=== PATIENT | male | born 1960 | race African-American/Black ===

== ENCOUNTER 2017-01-21 09:29 | Emergency (ER) | payer OTHER ==
[2017-01-21] MEDS ORDERED: Proparacaine 0.5% Opth 15 ML BOT ONE (10:27)
== END 2017-01-21 11:45 | disposition home or self-care (01) ==
LOC: ERS 09:29
DX: L03.213 Periorbital cellulitis (principal); Z71.6 Tobacco abuse counseling; F17.210 Nicotine dependence, cigarettes, uncomplicated; I10 Essential (primary) hypertension; F31.9 Bipolar disorder, unspecified; F20.9 Schizophrenia, unspecified
CPT/HCPCS: 99406

== ENCOUNTER 2017-01-22 08:32 | Emergency (ER) | payer OTHER ==
[2017-01-22] MEDS ORDERED: Clindamycin/D5W 900 mg/50 ml Premix Bag ONE (09:47)
[2017-01-22 09:50] LABS: Anion Gap 13 mmol/L (10-20); BUN (Urea Nitrogen) 17 mg/dL (8.4-25.7); Calc. Creatinine Clearance 0 mL/min (70-130); Calcium 9.1 mg/dL (7.8-10.44); Carbon Dioxide 20 mmol/L (22-29); Chloride 107 mmol/L (98-107); Estimated GFR-MDRD 82
[2017-01-22 10:02] LABS: Hematocrit 49.1 % (42.0-52.0); Mean Platelet Volume 9.5 fL (7.4-10.4); Red Blood Cell (RBC) Count 5.27 mill/uL (4.70-6.10); White Blood Cell (WBC) Count 6.4 thou/uL (4.8-10.8)
[2017-01-22 10:03] LABS: Band 1 % (5-11); Neutrophil 28 % (42-75); Reactive Lymphocytes 2 % (0-10)
--- NOTE | 2017-01-22 10:40 | CT ---
CT FACE WITH CONTRAST: Date: 01/22/17 HISTORY: Swelling to the right eye. COMPARISON: CT brain dated 08/28/16. FINDINGS: There is moderate right periorbital soft tissue hyperemia and edema. The right superior orbital vein is asymmetrically increased in size relative to the left. There are some subcutaneous nodules along the periorbital soft tissues of the right orbit which are unchanged from the CT brain examination a nd likely represent sebaceous cysts. The right globe is intact. The lens is intact. Sclerae and choroid are intact. No retrobulbar edema is appreciated. The orbital muscles are normal. No abscess is appreciated. Skin over the right cheek and orbit and mildly asymmetrically thickened. Small sebaceous cyst is not ed over the left cheek. There is no acute fracture of the facet. The mandibular condyles are well seated within the condylar fossa. Periorbital floors, orbital roofs, medial orbital wheatley, and lateral orbital wheatley are intac t. The pterygoid plates are intact. Parapharyngeal fat is normal. Visualized portions of the upper c ervical spine are unremarkable. There are numerous missing teeth, as well as extensive periodontal d isease and missing crowns of the remaining teeth. IMPRESSION: 1. Right periorbital cellulitis without visualized drainable abscess. There are numerous small subc utaneous low density cysts along the right cheek and zygoma which can be seen on the CT brain examination and likely represent sebaceous cysts as these do measure less than 0 Hounsfield units . 2. Asymmetric increased size of the right superior orbital vein relative to the left, likely due to the hyperemia from the periorbital cellulitis. No retrobulbar collection. No hemorrhage. No exophth almos. POS: [facility]
[2017-01-22] MEDS ORDERED: ISOVUE-370 76%-LOCM 1 ML ONE (14:16)
== END 2017-01-22 11:04 | disposition home or self-care (01) ==
LOC: ERS 08:32
DX: L03.213 Periorbital cellulitis (principal); I10 Essential (primary) hypertension; F31.9 Bipolar disorder, unspecified; F20.9 Schizophrenia, unspecified; F17.210 Nicotine dependence, cigarettes, uncomplicated; Z87.442 Personal history of urinary calculi
CPT/HCPCS: 36415; 70487; 80048; 85025; 87040; 96365; 99406; J3490

== ENCOUNTER 2017-01-24 02:46 | Emergency (ER) | payer OTHER ==
[2017-01-24] MEDS ORDERED: Lidocaine 4% Cream 5 GM TUBE w/ Tegaderm ONE (04:07)
== END 2017-01-24 05:09 | disposition home or self-care (01) ==
LOC: ERS 02:46
DX: L02.01 Cutaneous abscess of face (principal); L03.213 Periorbital cellulitis; I10 Essential (primary) hypertension; F31.9 Bipolar disorder, unspecified; F20.9 Schizophrenia, unspecified; F17.210 Nicotine dependence, cigarettes, uncomplicated; Z79.899 Other long term (current) drug therapy
CPT/HCPCS: 10060

== ENCOUNTER 2017-03-24 07:31 | Emergency (ER) | payer OTHER ==
[2017-03-24 08:19] LABS: Hemoglobin 15.5 g/dL (14.0-18.0); Mean Corpuscular HGB CONC 33.3 g/dL (32.0-36.0); Mean Corpuscular Hemoglobin 30.2 pg (27.0-31.0); Mean Corpuscular Volume 90.6 fl (80.0-94.0); Mean Platelet Volume 8.4 fL (7.4-10.4); Platelet Count 144 thou/uL (130-400); RBC Distribution Width 13.4 % (11.5-14.5); Red Blood Cell (RBC) Count 5.13 mill/uL (4.70-6.10); White Blood Cell (WBC) Count 6.9 thou/uL (4.8-10.8)
[2017-03-24 08:37] LABS: CKMB 1.2 ng/mL (0-6.6); Troponin I Less than 0.010 ng/mL (< 0.028)
--- NOTE | 2017-03-24 08:38 | RAD ---
CHEST 1 VIEW: Date: 03/24/17 HISTORY: 56-year-old male with syncope and dizziness. COMPARISON: 07/14/16. FINDINGS: Heart size is normal. The lungs are clear. No pneumonia, edema, or pleural effusion. IMPRESSION: No acute intrathoracic disease. Stable from prior study. POS: [facility]
[2017-03-24 08:42] LABS: Lymphocytes 53 % (21-51); MDiff Complete? YES; Monocytes 11 % (0-10); Neutrophil 36 % (42-75); PLT Morphology Comment Appears Adequate; RBC Morphology Normal
[2017-03-24 09:01] LABS: Bilirubin Negative (Negative); Blood, Urine Negative (Negative); Clarity CLEAR (Clear); Glucose, Urine (Dipstick) Negative (Negative); Leukocyte Negative (Negative); Nitrite Negative (Negative); Protein, Urine (Dipstick) Negative (Neg-Trace); Specific Gravity, Urine 1.023 (1.002-1.036); Urobilinogen 0.2 mg/dL (0.2-1.0)
[2017-03-24 09:11] LABS: Amphetamine Not Detected (NotDetected); Barbiturates Screen Not Detected (NotDetected); Benzodiazepine Screen Not Detected (NotDetected); Cocaine Metabolite Screen Not Detected (NotDetected); Medtox Control Line Valid? VALID (VALID); Medtox Reader # READER 1; Methadone Not Detected (NotDetected); Methamphetamine Not Detected (NotDetected); Opiate Screen Not Detected (NotDetected); Oxycodone Screen Not Detected (NotDetected); Phencyclidine (PCP) Not Detected (NotDetected); THC/Cannabinoid Screen Detected (NotDetected); Tricyclic Screen Not Detected (NotDetected)
[2017-03-24 09:13] LABS: Albumin 4.3 g/dL (3.5-5.0)
[2017-03-24 09:14] LABS: Chloride 106 mmol/L (98-107); Potassium 4.1 mmol/L (3.5-5.1); Sodium 141 mmol/L (136-145)
[2017-03-24 09:15] LABS: Calcium 9.8 mg/dL (7.8-10.44)
[2017-03-24 09:16] LABS: Globulin 2.7 g/dL (2.4-3.5); Glucose 98 mg/dL (70-105)
[2017-03-24 09:17] LABS: Anion Gap 13 mmol/L (10-20); Carbon Dioxide 26 mmol/L (22-29)
[2017-03-24 09:18] LABS: Bilirubin, Total 0.4 mg/dL (0.2-1.2)
[2017-03-24 09:19] LABS: Alkaline Phosphatase 74 U/L (40-150); Calc. Creatinine Clearance 0 mL/min (70-130); Estimated GFR-MDRD 73
[2017-03-24 09:20] LABS: BUN (Urea Nitrogen) 15 mg/dL (8.4-25.7)
[2017-03-24 09:21] LABS: AST (SGOT) 23 U/L (5-34)
[2017-03-24 09:22] LABS: ALT (SGPT) 23 U/L (8-55); CK (CPK) 660 U/L (30-200)
[2017-03-24 11:07] LABS: Troponin I 0.012 ng/mL (< 0.028)
== END 2017-03-24 11:40 | disposition home or self-care (01) ==
LOC: ERS 07:31
DX: R55 Syncope and collapse (principal); I10 Essential (primary) hypertension; F31.9 Bipolar disorder, unspecified; F20.9 Schizophrenia, unspecified; F17.210 Nicotine dependence, cigarettes, uncomplicated; Z79.899 Other long term (current) drug therapy; Z79.82 Long term (current) use of aspirin
CPT/HCPCS: 36415; 71045; 80053; 80306; 81003; 82550; 82553; 83880; 84484; 85025; 93005; 94760; 99406

== ENCOUNTER → 2017-05-21 | Outpatient (CLI) | payer OTHER ==
--- NOTE | 2017-06-05 15:36 | ULT ---
RENAL ULTRASOUND: Indication: 56-year-old male with history of renal calculi. Comparison: Renal ultrasound, 02-25-16 FINDINGS: The right kidney measures 10.0 x 5.8 x 4.5 cm. Left kidney measures 10.5 x 5.1 x 4.6 cm. Pre void zaida dder volume is 66.1 cc. IMPRESSION: No focal renal lesion or hydronephrosis demonstrated. POS: [facility]
--- NOTE | 2017-06-05 15:39 | RAD ---
KUB: INDICATIONS: Renal calculus. COMPARISON: Prior exam dated 01/25/2015. FINDINGS: The small, nonobstructing calculus involving the superior pole left kidney is stable. The tiny, nono bstructing calculus suspected within the inferior pole of the right kidney is largely obscured by ove rlying stool. There are scattered vascular calcifications within the lower pelvis. The lung bases a re clear. The bowel gas pattern is unobstructed. IMPRESSION: 1. Stable left nephrolithiasis. 2. Small calcification seen overlying the mid lower pole of the right kidney on the comparison exami nation, not definitely visualized and likely obscured by overlying bowel gas. POS: [facility]
== END ==
LOC: BICULT 08:29
PROVIDERS: ATTEND Urology
DX: N20.0 Calculus of kidney (principal)
CPT/HCPCS: 74018; 76770

== ENCOUNTER 2018-08-28 19:45 | Emergency (ER) | payer OTHER ==
[2018-08-28 20:23] LABS: #Basophils 0.1 thou/uL (0.0-0.2); #Lymphocytes 3.7 thou/uL (1.20-3.40); #Monocytes 0.7 thou/uL (0.11-0.59); #Neutrophils 3.3 thou/uL (1.40-6.50); %Eosinophils 0.1 % (0.0-10.0); %Lymphocytes 47.6 % (21.0-51.0); %Monocytes 9.4 % (0.0-10.0); %Neutrophils 41.9 % (42.0-75.0); Hemoglobin 17.2 g/dL (14.0-18.0); Mean Corpuscular Hemoglobin 29.2 pg (27.0-31.0); Mean Corpuscular Volume 86.1 fL (78.0-98.0); Mean Platelet Volume 9.4 fL (7.4-10.4); Platelet Count 160 thou/uL (130-400); RBC Distribution Width 13.4 % (11.5-14.5); White Blood Cell (WBC) Count 7.9 thou/uL (4.8-10.8)
[2018-08-28 20:44] LABS: ALT (SGPT) 26 U/L (8-55); AST (SGOT) 33 U/L (5-34); Albumin 5.3 g/dL (3.5-5.0); Alkaline Phosphatase 102 U/L (40-150); Anion Gap 19 mmol/L (10-20); BUN (Urea Nitrogen) 19 mg/dL (8.4-25.7); Bilirubin, Total 0.6 mg/dL (0.2-1.2); CK (CPK) 2237 U/L (30-200); Calc. Creatinine Clearance 0 mL/min (70-130); Calcium 10.7 mg/dL (7.8-10.44); Carbon Dioxide 19 mmol/L (22-29); Chloride 103 mmol/L (98-107); Estimated GFR-MDRD 43; Globulin 3.7 g/dL (2.4-3.5); Glucose 136 mg/dL (70-105); Potassium 3.6 mmol/L (3.5-5.1); Sodium 137 mmol/L (136-145)
[2018-08-28 20:45] LABS: Acetaminophen Less than 6.0 mcg/mL (10.0-30.0); Alcohol Less than 10 mg/dL (Less than 10); Salicylate Less than 8.0 mg/dL (15.0-30.0)
[2018-08-28 21:42] LABS: Amphetamine Not Detected (NotDetected); Barbiturates Screen Not Detected (NotDetected); Benzodiazepine Screen Not Detected (NotDetected); Cocaine Metabolite Screen Not Detected (NotDetected); Medtox Control Line Valid? VALID (VALID); Medtox Reader # READER 1; Methadone Not Detected (NotDetected); Methamphetamine Not Detected (NotDetected); Opiate Screen Not Detected (NotDetected); Oxycodone Screen Not Detected (NotDetected); Phencyclidine (PCP) Not Detected (NotDetected); THC/Cannabinoid Screen Detected (NotDetected); Tricyclic Screen Not Detected (NotDetected)
[2018-08-28 22:21] LABS: Anion Gap 14 mmol/L (10-20); BUN (Urea Nitrogen) 17 mg/dL (8.4-25.7); CK (CPK) 1990 U/L (30-200); Calc. Creatinine Clearance 0 mL/min (70-130); Carbon Dioxide 17 mmol/L (22-29); Chloride 110 mmol/L (98-107); Estimated GFR-MDRD 58; Glucose 127 mg/dL (70-105); Potassium 3.7 mmol/L (3.5-5.1); Sodium 137 mmol/L (136-145)
--- NOTE | 2018-08-30 11:05 | EKG ---
Test Reason : Blood Pressure : / mmHG Vent. Rate : 120 BPM Atrial Rate : 120 BPM P-R Int : 148 ms QRS Dur : 080 ms QT Int : 308 ms P-R-T Axes : 049 011 -56 degrees QTc Int : 435 ms Sinus tachycardia T wave abnormality, consider inferior ischemia Abnormal ECG Confirmed by THERESE DIOP ([id number]), publishing editor BRITTNEY LYNN ([id number]) on 08/30/2018 11:05:42 AM Referred By: Confirmed By:THERESE DIOP
== END 2018-08-28 22:57 | disposition home or self-care (01) ==
LOC: ERS 19:45
DX: M62.82 Rhabdomyolysis (principal); E86.0 Dehydration; I10 Essential (primary) hypertension; J45.909 Unspecified asthma, uncomplicated; F20.9 Schizophrenia, unspecified; F31.9 Bipolar disorder, unspecified; F17.210 Nicotine dependence, cigarettes, uncomplicated; Z79.82 Long term (current) use of aspirin; Z79.899 Other long term (current) drug therapy
CPT/HCPCS: 36415; 80053; 80306; 80307; 82550; 85025; 93005; 96360; 96361

== ENCOUNTER 2018-09-09 14:04 | Emergency (ER) | payer OTHER | END 2018-09-09 15:15 | disposition home or self-care (01) | LOC: ERS 14:04 | DX: L02.412 Cutaneous abscess of left axilla (principal); I10 Essential (primary) hypertension; J45.909 Unspecified asthma, uncomplicated; F31.9 Bipolar disorder, unspecified; F20.9 Schizophrenia, unspecified; F17.210 Nicotine dependence, cigarettes, uncomplicated; Z79.899 Other long term (current) drug therapy; Z79.82 Long term (current) use of aspirin; Z79.51 Long term (current) use of inhaled steroids | CPT/HCPCS: 10060 ==

== ENCOUNTER 2018-11-04 10:42 | Day surgery (SDC) | payer OTHER ==
[2018-11-03 13:02] VITALS: BMI 32.5
[2018-11-04] MEDS ORDERED: Ketorolac Tromethamine 30 MG/ML VIAL ONE (11:06)
[2018-11-04] MEDS ORDERED: Glycopyrrolate 0.2 MG/ML 5 ML SYRINGE ONE (11:17)
[2018-11-04] MEDS ORDERED: Lidocaine 1% PF 5 ML VIAL ONE (11:17)
[2018-11-04] MEDS ORDERED: ePHEDrine 50 MG/ML VIAL ONE (11:17)
[2018-11-04] MEDS ORDERED: Dexamethasone 20 MG/5 ML VIAL ONE (11:17)
[2018-11-04] MEDS ORDERED: PROPOFOL 200 MG/20 ML VIAL ONE (11:17)
[2018-11-04] MEDS ORDERED: Ondansetron PF 4 MG/2 ML Vial ONE (11:17)
[2018-11-04] MEDS ORDERED: PHENYLEPHRINE-NS 100 MCG/ML 10 ML SYRINGE ONE (11:17)
[2018-11-04] MEDS ORDERED: Rocuronium Bromide 10 MG/ML (10ML VIAL) ONE (11:17)
[2018-11-04 11:31] LABS: #Basophils 0.1 thou/uL (0.0-0.2); #Eosinphils 0.1 thou/uL (0.0-0.7); #Lymphocytes 2.8 thou/uL (1.20-3.40); #Monocytes 0.6 thou/uL (0.11-0.59); #Neutrophils 2.4 thou/uL (1.40-6.50); %Basophils 1.1 % (0.0-1.0); %Eosinophils 0.9 % (0.0-10.0); %Lymphocytes 47.1 % (21.0-51.0); %Neutrophils 40.9 % (42.0-75.0); Hemoglobin 16.9 g/dL (14.0-18.0); Mean Corpuscular HGB CONC 34.3 g/dL (32.0-36.0); Mean Corpuscular Hemoglobin 29.3 pg (27.0-31.0); Mean Corpuscular Volume 85.7 fL (78.0-98.0); Platelet Count 134 thou/uL (130-400); RBC Distribution Width 13.2 % (11.5-14.5); Red Blood Cell (RBC) Count 5.74 mill/uL (4.70-6.10); White Blood Cell (WBC) Count 5.9 thou/uL (4.8-10.8)
[2018-11-04 11:57] LABS: Anion Gap 15 mmol/L (10-20); BUN (Urea Nitrogen) 20 mg/dL (8.4-25.7); Calc. Creatinine Clearance 76 mL/min (70-130); Calcium 10.5 mg/dL (7.8-10.44); Carbon Dioxide 22 mmol/L (22-29); Chloride 104 mmol/L (98-107); Estimated GFR-MDRD 58; Glucose 111 mg/dL (70-105); Potassium 3.8 mmol/L (3.5-5.1); Sodium 137 mmol/L (136-145)
[2018-11-04] MEDS ORDERED: Bupivacaine/Epinephrine 0.25% 30 ML VIAL ONE ×2 (14:25→14:28)
[2018-11-04] MEDS ORDERED: Fentanyl 100 MCG/2 ML VIAL ONE (14:29)
--- NOTE | 2018-11-04 21:30 | OP ---
DATE OF PROCEDURE: 11/04/2018 PREOPERATIVE DIAGNOSIS: Ventral incisional hernia. POSTOPERATIVE DIAGNOSIS: Ventral incisional hernia. PROCEDURE PERFORMED: Open repair of ventral incisional hernia with simultaneous repair of small umbilical hernia using Ventralex mesh patch. ANESTHESIA: General endotracheal. INDICATIONS: The patient is a 58-year-old black male. He has a laparotomy incision from surgery about 30 years ago. He has recently developed a protruding bulging mass just above his umbilicus. He is taken to the operating room at this time for repair of this. DESCRIPTION OF OPERATION: Informed consent was obtained. The patient was taken to the operating room, where general anesthesia was obtained and placed in supine position. Abdomen was prepped with ChloraPrep, draped in sterile fashion. Local anesthetic was infiltrated using 0.25% Marcaine with epinephrine. Elliptical incision was created to excise the widened scar at this area. Dissection was carried through skin and subcutaneous tissue, and medially down on to the hernia sac. This was dissected circumferentially. It was dissected down to the fascial defect and then this was dissected completely. As I attempted to examine the hernia contents, it was noted that there was intestine bulging through this. There was a tiny superficial cautery injury to this, was repaired with single interrupted suture of 3-0 silk. The contents were then fully reduced. The posterior aspect of the fascia was dissected circumferentially to clear the preperitoneal space. There was some fatty material bulging through a small umbilical defect just lateral and inferior to the main incisional hernia. This was all dissected and reduced. A 4.3 cm Ventralex mesh patch was obtained and placed in the preperitoneal space and fully expanded. The mesh tails were used to pull the mesh snugly against the posterior aspect of the fascia. The tails were secured to fascia on the anterior aspect laterally on each side with single interrupted sutures of 0 Prolene. The inferior and superior aspects of the defect were approximated further with single interrupted sutures of Prolene as well, obtaining bites of the anterior leaflet of the mesh patch. The wound was irrigated. All irrigant was aspirated. Additional local anesthetic was infiltrated. Wound was closed in layers using 3-0 Vicryl and 4-0 Monocryl. Dermabond was placed externally. There were no complications. The patient tolerated the procedure well and was taken to recovery room in stable condition. Job ID: [id number]
== END 2018-11-04 17:12 | disposition home or self-care (01) ==
LOC: SDC 10:42
PROVIDERS: ATTEND Specialist
PROC: 0WUF0JZ Supplement Abdominal Wall with Synthetic Substitute, Open Approach (ICD-10-PCS; principal; 2018-11-04)
DX: K43.2 Incisional hernia without obstruction or gangrene (principal); K42.9 Umbilical hernia without obstruction or gangrene; I12.9 Hypertensive chronic kidney disease with stage 1 through stage 4 chronic kidney disease, or unspecified chronic kidney disease; N18.9 Chronic kidney disease, unspecified; F20.9 Schizophrenia, unspecified; F31.9 Bipolar disorder, unspecified; F17.210 Nicotine dependence, cigarettes, uncomplicated; N40.0 Benign prostatic hyperplasia without lower urinary tract symptoms; Z79.82 Long term (current) use of aspirin; Z79.899 Other long term (current) drug therapy
CPT/HCPCS: 36415; 80048; 85025; 93005; 93010; J0131; J0690; J1100; J1885; J2001; J2405; J2704; J3010; J3490

== ENCOUNTER 2022-10-09 09:45 | Observation (INO) | payer OTHER ==
[2022-10-09 10:33] LABS: Manual Diff?? YES; Mean Corpuscular HGB CONC 33.2 g/dL (32.0-36.0); Mean Corpuscular Hemoglobin 28.9 pg (27.0-31.0); Mean Corpuscular Volume 87.2 fl (78.0-98.0); Mean Platelet Volume 10.8 fL (7.4-10.4); Platelet Count 154 10x3/uL (130-400); RBC Distribution Width 14.3 % (11.5-14.5); Red Blood Cell (RBC) Count 4.84 mill/uL (4.70-6.10); White Blood Cell (WBC) Count 7.2 10x3/uL (4.8-10.8)
[2022-10-09 10:46] LABS: Delete Auto Diff?? YES
[2022-10-09 10:55] LABS: ALT (SGPT) 18 U/L (8-55); AST (SGOT) 17 U/L (5-34); Alkaline Phosphatase 80 U/L (40-110); Anion Gap 13 mmol/L (10-20); BUN (Urea Nitrogen) 8 mg/dL (8.4-25.7); Bilirubin, Total 0.3 mg/dL (0.2-1.2); Calc. Creatinine Clearance 0 mL/min (70-130); Calcium 8.7 mg/dL (7.8-10.44); Carbon Dioxide 22 mmol/L (23-31); Chloride 107 mmol/L (98-107); Estimated GFR 63; Globulin 2.8 g/dL (2.4-3.5); Glucose 123 mg/dL (80-115); Potassium 3.4 mmol/L (3.5-5.1); Protein, Total 6.8 g/dL (5.8-8.1); Sodium 139 mmol/L (136-145)
[2022-10-09 11:58] LABS: Lymphocytes 51 % (21-51); Monocytes 14 % (0-10); Neutrophil 22 % (42-75); Platelet Adequacy Comment Platelets Normal; Reactive Lymphocytes 11 % (0-10)
[2022-10-09 11:59] LABS: Polychromasia SLIGHT = 2-3 cells (100X) (0-2/hpf)
[2022-10-09 12:00] LABS: Ovalocytes SLIGHT = 2-5 cells (100X) (0-1/hpf)
[2022-10-09] MEDS ORDERED: Aspirin Chewable 81 MG TAB ONE (12:19)
[2022-10-09 13:03] LABS: Amphetamine Not Detected (NotDetected); Barbiturates Screen Not Detected (NotDetected); Benzodiazepine Screen Detected (NotDetected); Cocaine Metabolite Screen Not Detected (NotDetected); Methadone Not Detected (NotDetected); Methamphetamine Not Detected (NotDetected); Opiate Screen Detected (NotDetected); Oxycodone Screen Not Detected (NotDetected); Phencyclidine (PCP) Not Detected (NotDetected); THC/Cannabinoid Screen Detected (NotDetected); Tricyclic Screen Detected (NotDetected)
[2022-10-09 13:45] LABS: Acetaminophen Less than 10 mcg/mL (10.0-30.0); Alcohol Less than 10.0 mg/dL (Less than 10); Magnesium 1.9 mg/dL (1.6-2.6); Salicylate Less than 8.0 mg/dL (15.0-30.0); Troponin I Less than 0.010 ng/mL (< 0.028)
[2022-10-09 17:34] VITALS: BP 170/99
[2022-10-09 17:53] VITALS: BMI 32.4
[2022-10-09 18:00] LABS: Troponin I Less than 0.010 ng/mL (< 0.028)
[2022-10-10] MEDS ORDERED: Aspirin Chewable 81 MG TAB PO SCH (09:00)
== END 2022-10-09 19:45 | disposition left against medical advice (07) ==
LOC: ERS 09:45 → ERHOLD 12:29 → 2SW 16:59
PROVIDERS: ADMIT Internal Medicine; ATTEND Internal Medicine
DX: R41.82 Altered mental status, unspecified (principal); I10 Essential (primary) hypertension; F31.9 Bipolar disorder, unspecified; E78.5 Hyperlipidemia, unspecified; F20.9 Schizophrenia, unspecified; J45.909 Unspecified asthma, uncomplicated; F17.210 Nicotine dependence, cigarettes, uncomplicated; Z79.899 Other long term (current) drug therapy; Z79.82 Long term (current) use of aspirin; Z93.3 Colostomy status
CPT/HCPCS: 36415; 71045; 80053; 80306; 80307; 83735; 83880; 84443; 84484; 85025; 93005; 96372; G0378; J1650

== ENCOUNTER 2023-01-29 04:47 | Emergency (ER) | payer OTHER ==
[2023-01-29 05:20] LABS: Hematocrit 40.4 % (42.0-52.0); Hemoglobin 13.7 g/dL (14.0-18.0); Mean Corpuscular HGB CONC 33.9 g/dL (32.0-36.0); Mean Corpuscular Hemoglobin 29.5 pg (27.0-31.0); Mean Corpuscular Volume 86.9 fl (78.0-98.0); Mean Platelet Volume 10.5 fL (7.4-10.4); Platelet Count 156 10x3/uL (130-400); RBC Distribution Width 14.6 % (11.5-14.5); Red Blood Cell (RBC) Count 4.65 mill/uL (4.70-6.10); White Blood Cell (WBC) Count 6.7 10x3/uL (4.8-10.8)
[2023-01-29 05:48] LABS: ALT (SGPT) 14 U/L (8-55); AST (SGOT) 15 U/L (5-34); Albumin 3.9 g/dL (3.4-4.8); Alkaline Phosphatase 75 U/L (40-110); Anion Gap 11 mmol/L (10-20); BUN (Urea Nitrogen) 13 mg/dL (8.4-25.7); Bilirubin, Total 0.4 mg/dL (0.2-1.2); Calc. Creatinine Clearance 0 mL/min (70-130); Calcium 8.6 mg/dL (7.8-10.44); Carbon Dioxide 24 mmol/L (23-31); Chloride 108 mmol/L (98-107); Estimated GFR 82; Globulin 2.6 g/dL (2.4-3.5); Glucose 98 mg/dL (80-115); Potassium 3.6 mmol/L (3.5-5.1); Protein, Total 6.5 g/dL (5.8-8.1); Sodium 139 mmol/L (136-145)
[2023-01-29 05:52] LABS: Troponin I Less than 0.010 ng/mL (< 0.028)
[2023-01-29 06:10] LABS: Delete Auto Diff?? YES; Manual Diff?? YES
[2023-01-29 06:54] LABS: Anisocytosis SLIGHT = 6-15 cells HPF (0-5); CellaVision Operator ID LAB.JMM; Eosinophils 2 % (0-10); Lymphocytes 48 % (21-51); Monocytes 17 % (0-10); Neutrophil 32 % (42-75); Platelet Adequacy Comment Platelets Normal; Polychromasia SLIGHT = 2-3 cells HPF (0-2); Reactive Lymphocytes 1 % (0-10); Total Cell Count 100
== END 2023-01-29 05:32 | disposition left against medical advice (07) ==
LOC: ERS 04:47
DX: Z53.21 Procedure and treatment not carried out due to patient leaving prior to being seen by health care provider (principal); I10 Essential (primary) hypertension; F17.210 Nicotine dependence, cigarettes, uncomplicated
CPT/HCPCS: 36415; 71045; 80053; 83605; 84484; 85025

== ENCOUNTER 2024-12-28 18:52 | Emergency (ER) | payer OTHER | END 2024-12-28 21:32 | disposition left against medical advice (07) | LOC: ERS 18:52 | DX: Z53.21 Procedure and treatment not carried out due to patient leaving prior to being seen by health care provider (principal) ==

== ENCOUNTER → 2024-12-29 | Emergency (ER) | payer MEDICAID, OTHER ==
[~2024-12-29] MED LIST: Ibuprofen 800 MG TAB ONE; Orphenadrine Citrate 60 MG/2 ML VIAL ONE
== END ==
LOC: ERS 01:50
DX: M54.2 Cervicalgia (principal); R51.9 Headache, unspecified; J44.9 Chronic obstructive pulmonary disease, unspecified; Z79.51 Long term (current) use of inhaled steroids; V89.2XXA Person injured in unspecified motor-vehicle accident, traffic, initial encounter; Y93.89 Activity, other specified
CPT/HCPCS: 96372; 99283; J2360; J3010